=== PATIENT | female | born 1965 | race Caucasian/White ===

== ENCOUNTER → 2017-09-29 | Outpatient (CLI) | payer BC ==
--- NOTE | 2017-09-29 12:02 | MM ---
Reason for exam: additional evaluation requested from abnormal screening. Last mammogram was performed less than 1 month ago. Physical Findings: Nurse did not find any significant physical abnormalities on exam. MG Work Up Mamm w CAD RT Spot compression CC, spot compression MLO, and ML view(s) were taken of the right breast. Prior study comparison: September 15, 2017, bilateral MG screening mammo w CAD. October 02, 2015, bilateral MG screening mammo w CAD. The breast tissue is heterogeneously dense. This may lower the sensitivity of mammography. No suspicious abnormality. The previously seen focal asymmetry of the right upper outer quadrant appears as fibroglandular tissue on additional views. These results were verbally communicated with the patient and result sheet given to the patient on 09/29/17.. ASSESSMENT: Negative, BI-RAD 1 RECOMMENDATION: Return to routine screening mammogram schedule for both breasts.
== END | disposition home or self-care (01) ==
LOC: RADMAMWWP 09:03
PROVIDERS: ATTEND Obstetrics & Gynecology
DX: R92.8 Other abnormal and inconclusive findings on diagnostic imaging of breast (principal)
CPT/HCPCS: 77065

== ENCOUNTER → 2018-09-20 | Outpatient (CLI) | payer BC ==
[2018-09-20 10:21] LABS: Basophils % (A) 1 %; Eosinophils % (A) 1 %; HCT 41.5 % (34.0-46.0); HGB 13.8 gm/dL (11.4-16.0); Lymphocytes # (A) 1.1 k/uL (1.0-4.8); Lymphocytes % (A) 18 %; MCH 31.9 pg (25.0-35.0); MCHC 33.2 g/dL (31.0-37.0); MCV 96.2 fL (80.0-100.0); Mean Platelet Volume 7.1; Monocytes # (A) 0.3 k/uL (0-1.0); Monocytes % (A) 5 %; Neutrophils # (A) 4.6 k/uL (1.3-7.7); Neutrophils % (A) 74 %; Platelet Count 228 k/uL (150-450); RBC 4.32 m/uL (3.80-5.40); RDW 12.8 % (11.5-15.5); WBC 6.3 k/uL (3.8-10.6)
[2018-09-20 16:38] LABS: Albumin 4.2 g/dL (3.80-4.90); Albumin/Globulin Ratio 2.33 (1.60-3.17); Anion Gap 6.3 mmol/L (4.00-12.00); Calcium 9.4 mg/dL (8.7-10.3); Carbon Dioxide 25.7 mmol/L (21.6-31.8); Globulin 1.8 g/dL (1.6-3.3); LDL Cholesterol,Calculated 73.8 mg/dL (0.0-131.0); Magnesium 2.1 mg/dL (1.5-2.4); Potassium 4.2 mmol/L (3.5-5.5); Total Bilirubin 1.9 mg/dL (0.3-1.2); VLDL Calculation 22.2 mg/dL (5.00-40.00)
== END | disposition home or self-care (01) ==
LOC: LABWHC1 09:05
PROVIDERS: ATTEND Family Medicine
DX: Z00.00 Encounter for general adult medical examination without abnormal findings (principal); R00.2 Palpitations; R53.83 Other fatigue
CPT/HCPCS: 36415; 80053; 80061; 82607; 83735; 84443; 85025

== ENCOUNTER → 2018-09-26 | Outpatient (CLI) | payer BC ==
--- NOTE | 2018-09-27 12:05 | MM ---
Reason for exam: screening (asymptomatic). Last mammogram was performed 1 year ago. History: Took estrogen for 3 years. Took progesterone for 3 years. Physical Findings: A clinical breast exam by your physician is recommended on an annual basis and results should be correlated with mammographic findings. MG Screening Mammo w CAD Bilateral CC and MLO view(s) were taken. Prior study comparison: September 29, 2017, right breast MG work up mamm w CAD RT. September 15, 2017, bilateral MG screening mammo w CAD. The breast tissue is heterogeneously dense. This may lower the sensitivity of mammography. There is no discrete abnormality. ASSESSMENT: Negative, BI-RAD 1 RECOMMENDATION: Routine screening mammogram of both breasts in 1 year.
== END | disposition home or self-care (01) ==
LOC: RADMAMWWP 09:16
PROVIDERS: ATTEND Obstetrics & Gynecology
DX: Z12.31 Encounter for screening mammogram for malignant neoplasm of breast (principal)
CPT/HCPCS: 77067

== ENCOUNTER → 2018-11-07 | Outpatient (CLI) | payer BC ==
--- NOTE | 2018-12-01 14:01 | EM ---
EVENT MONITOR EVENT MONITOR: Event monitor for 31 days shows sinus rhythm with frequent PVCs, sometimes in a bigeminal pattern or short nonsustained run of atrial tachycardia. No sustained arrhythmias. No bradyarrhythmias. MMMARIELLEL / DEEPTIN: [id number] /
== END | disposition home or self-care (01) ==
LOC: RADECHMAIN 11:58
PROVIDERS: ATTEND Family Medicine
DX: R00.2 Palpitations (principal)
CPT/HCPCS: 93270

== ENCOUNTER → 2019-02-06 | Outpatient (CLI) | payer BC ==
--- NOTE | 2019-02-07 17:00 | ECHOF ---
Referral Reason:I49.3 Ventricular premature depolarization MEASUREMENTS -------- HEIGHT: 175.3 cm WEIGHT: 74.8 kg BP: 131/67 RVIDd: 3.6 cm (< 3.3) IVSd: 1.1 cm (0.6 - 1.1) LVIDd: 4.0 cm (3.9 - 5.3) LVPWd: 1.0 cm (0.6 - 1.1) IVSs: 1.5 cm LVIDs: 2.6 cm LVPWs: 1.3 cm LA Diam: 2.6 cm (2.7 - 3.8) LAESV Index (A-L): 22.57 ml/m Ao Diam: 3.8 cm (2.0 - 3.7) AV Cusp: 2.0 cm (1.5 - 2.6) MV EXCURSION: 15.510 mm (> 18.000) MV EF SLOPE: 73 mm/s (70 - 150) EPSS: 0.5 cm MV E Emerson: 1.00 m/s MV DecT: 282 ms MV A Emerson: 0.64 m/s MV E/A Ratio: 1.57 AV maxP.89 mmHg AV meanP.24 mmHg RAP: 5.00 mmHg RVSP: 28.81 mmHg FINDINGS -------- Sinus rhythm. This was a technically good study. The left ventricular size is normal. Left ventricular wall thickness is normal. Overall left vent ricular systolic function is normal with, an EF between 60 - 65 %. The right ventricle is mildly enlarged. Normal LA size by volume 22+/-6 ml/m2. The right atrium is normal in size. Interatrial and interventricular septum intact. The aortic valve is bicuspid. Peak/mean gradient across the Aortic Valve is 11.89mmHg / 6.24mmHg. The mitral valve is normal. There is trace to mild mitral regurgitation. Mild tricuspid regurgitation present. Right ventricular systolic pressure is normal at < 35 mmHg. Trace/mild (physiologic) pulmonic regurgitation. The aortic root and ascending aorta are dilated measuring up to 41 mm. Normal inferior vena cava with normal inspiratory collapse consistent with estimated right atrial pre ssure of 5 mmHg. There is no pericardial effusion. CONCLUSIONS -------- 1. Sinus rhythm. 2. This was a technically good study. 3. The left ventricular size is normal. 4. Left ventricular wall thickness is normal. 5. Overall left ventricular systolic function is normal with, an EF between 60 - 65 %. 6. The right ventricle is mildly enlarged. 7. Normal LA size by volume 22+/-6 ml/m2. 8. The right atrium is normal in size. 9. Interatrial and interventricular septum intact. 10. The aortic valve is bicuspid. 11. Peak/mean gradient across the Aortic Valve is 11.89mmHg / 6.24mmHg. 12. The mitral valve is normal. 13. There is trace to mild mitral regurgitation. 14. Mild tricuspid regurgitation present. 15. Right ventricular systolic pressure is normal at < 35 mmHg. 16. Trace/mild (physiologic) pulmonic regurgitation. 17. The aortic root and ascending aorta are dilated measuring up to 41 mm. 18. Normal inferior vena cava with normal inspiratory collapse consistent with estimated right atrial pressure of 5 mmHg. 19. There is no pericardial effusion. RETAIL MERCHANDISER: Soraya Gonzalez RDCS
== END | disposition home or self-care (01) ==
LOC: RADECHMAIN 16:13
PROVIDERS: ATTEND Family Medicine
DX: I08.1 Rheumatic disorders of both mitral and tricuspid valves (principal)
CPT/HCPCS: 93306

== ENCOUNTER → 2019-02-27 | Outpatient (CLI) | payer BC ==
--- NOTE | 2019-02-27 12:05 | CT ---
EXAMINATION TYPE: CT angio chest DATE OF EXAM: 02/27/2019 11:48 AM COMPARISON: None HISTORY: Heart palpitations CT DLP: 268.1 mGycm Automated exposure control for dose reduction was used. CONTRAST: CTA scan of the thorax is performed with IV Contrast, patient injected with 100 mL of Isovue 370, pul monary embolism protocol. . FINDINGS: LUNGS: Groundglass changes posteriorly are most typical of dependent atelectasis. 3 mm subpleural no dule left lower lobe laterally and a couple anterior segment right lower lobe 2 mm subpleural nodules are noted. No overt failure. No pleural effusion or pneumothorax. MEDIASTINUM: There is satisfactory enhancement of the pulmonary artery and its branches, there is no CT evidence for pulmonary embolism. There are no greater than 1 cm hilar or mediastinal lymph nodes . No pericardial effusion is seen. Heart is enlarged. Visualized pulmonary arteries enhance normall y. Ascending aorta measures 4.2 x 4.2 cm compatible with mild aneurysmal dilation. Aortic arch and de scending thoracic aorta are normal caliber. Mild atherosclerotic changes of the coronary arteries. OTHER: Hypertrophic and degenerative change spine. IMPRESSION: 1. Mild aneurysmal dilation of the ascending aorta measuring 4.2 x 4.2 cm. 2. Cardiomegaly with mild atherosclerotic changes of the coronary arteries
== END | disposition home or self-care (01) ==
LOC: RADCTMAIN 11:09
PROVIDERS: ATTEND Family Medicine
DX: I77.810 Thoracic aortic ectasia (principal); I51.7 Cardiomegaly; I25.10 Atherosclerotic heart disease of native coronary artery without angina pectoris
CPT/HCPCS: 71275; Q9967

== ENCOUNTER → 2020-04-15 | Outpatient (CLI) | payer BC ==
--- NOTE | 2020-04-16 13:00 | CT ---
CT CHEST FOR PULMONARY EMBOLISM. EXAMINATION TYPE: CT angio chest DATE OF EXAM: 04/15/2020 INDICATION: f/u aneurysm CT DLP: 254.7 mGycm, Automated exposure control for dose reduction was used. CONTRAST: Patient injected with 100 mL of Isovue 370. COMPARISON: 02/27/2019 TECHNIQUE: CT of the chest is performed on a spiral scan at 2 mm thick sections. Study is performed with intravenous contrast timed for evaluation of aortic aneurysm. This will limit additional portio ns of the evaluation. 3-D MIP images reconstructed by the technologist are reviewed on the computer in the coronal and sagittal planes. FINDINGS: No persistent filling defects are evident to suggest an acute pulmonary embolism. No mediastinal or hilar adenopathy enlarged by CT criteria is evident. The ascending aorta diameter at the level of the main pulmonary artery is 3.9 cm. Previous measurement 4.2 cm. No enlargement is evident. The main pulmonary artery diameter at the bifurcation is 2.6 cm. Lung windows are clear. Limited CT section through the upper abdomen are unremarkable. IMPRESSIONS: 1. Fusiform prominence without interval growth of the mid ascending thoracic aorta. 2. Aorta tapers normally through its visualized course.
== END | disposition home or self-care (01) ==
LOC: RADCTMAIN 16:30
PROVIDERS: ATTEND Internal Medicine Interventional Cardiology
DX: I71.2 Thoracic aortic aneurysm, without rupture (principal)
CPT/HCPCS: 71275; Q9967

== ENCOUNTER → 2023-08-25 | Outpatient (CLI) | payer BC ==
--- NOTE | 2023-08-25 21:35 | BD ---
EXAMINATION TYPE: Axial Bone Density DATE OF EXAM: 08/25/2023 CLINICAL HISTORY: 58 years old Female. ICD-10 CODE: N95.9 POST MENOPAUSAL Height: 68 Weight: 176 FRAX RISK QUESTIONS: Alcohol (3 or more units per day): no Family History (Parent hip fracture): no Glucocorticoids (More than 3mos): no History of Fracture in Adulthood: Fibula Secondary Osteoporosis: 1. Type 1 Diabetes: n0 2. Hyperthyroidism: no 3. Menopause before 45: no 4. Malnutrition: no 5. Chronic liver disease: no Rheumatoid Arthritis: no Current Tobacco Use: no RISK FACTORS HISTORY OF: Hip Fracture (Right/Left): no Spine Fracture: no History of Wrist Fracture: no Surgery to Spine/Hip(right/left)/Wrist (right/left): no MEDICATIONS: Thyroid Medications: no Osteoporosis Medications: no EXAM MEASUREMENTS: Bone mineral densitometry was performed using the [employer] System. Bone mineral density as measured about the Lumbar spine is: ----- L1-L4(G/cm2): 1.004 T Score Values are as follows: ----- L1: -11 ----- L2: -2.0 ----- L3: -1.5 ----- L4: -1.4 ----- L1-L4: -1.5 Z Score Values are as follows: ----- L1: -0.4 ----- L2: -1.3 ----- L3: -0.8 ----- L4: -0.7 ----- L1-L4: -0.8 Baseline Study Bone mineral density about the R hip (g/cm2): 0.882 Bone mineral density about the L hip (g/cm2): 0.904 T Score values are as follows: -----R Neck: -0.6 -----L Neck: -0.8 -----R Total: -1.0 -----L Total: -0.8 Z Score values are as follows: -----R Neck: 0.3 -----L Neck: 0.1 -----R Total: -0.4 -----L Total: -0.3 Baseline Study FRAX%s: The graph provided illustrates a 6.9 % chance for a major osteoporotic fx and a 0.3% chance f or the hips probability for fx in 10 years time. IMPRESSION: Osteopenia (T Score between -2.5 and -1). There is slightly increased risk of fracture and the patient may be considered for treatment. Re-Screen 2-5 years. NOTE: T-SCORE=SD OF THE YOUNG ADULT MEAN.
--- NOTE | 2023-08-28 14:55 | MM ---
Reason for Exam: Screening (asymptomatic). Last mammogram was performed 4 year(s) and 11 month(s) ago. Patient History: Menarche at age 11. First Full-Term at age 25. Postmenopausal. Currently using Estrogen, for 3 years. Currently using Progesterone, for 3 years. Risk Values: Katina 5 year model risk: 1.6%. NCI Lifetime model risk: 8.1%. Prior Study Comparison: 09/15/2017 Bilateral Screening Mammogram, [facility]. 09/29/2017 Right Diagnostic Mammogram, [facility]. 09/26/2018 Bilateral Screening Mammogram, [facility]. Tissue Density: The breasts are heterogeneously dense, which may obscure small masses. Findings: Analyzed By CAD. The pattern is symmetrical. Pattern appears stable. No suspicious groups of microcalcifications, spiculated or lobular masses, architectural distortion or other secondary signs of malignancy are mammographically apparent. Overall Assessment: Negative, BI-RAD 1 Management: Screening Mammogram of both breasts in 1 year. A negative mammogram report should not preclude additional follow up of suspicious palpable abnormalities. Patient should continue monthly self breast exam. A clinical breast exam by your physician is recommended on an annual basis and results should be correlated with mammographic findings. Electronically signed and approved by: Jan Olivo D.O. Radiologis
== END | disposition home or self-care (01) ==
LOC: RADMAMWWP 09:02
PROVIDERS: ATTEND Student in an Organized Health Care Education/Training Program
DX: Z12.31 Encounter for screening mammogram for malignant neoplasm of breast (principal); M85.89 Other specified disorders of bone density and structure, multiple sites; N95.9 Unspecified menopausal and perimenopausal disorder; Z78.0 Asymptomatic menopausal state
CPT/HCPCS: 77063; 77067; 77080

== ENCOUNTER → 2023-08-25 | Outpatient (CLI) | payer BC ==
--- NOTE | 2023-08-30 19:13 | CT ---
EXAMINATION TYPE: CT angio chest CT DLP: 646.2 mGycm, Automated exposure control for dose reduction was used. DATE OF EXAM: 08/25/2023 9:19 AM COMPARISON: Chest radiograph from same day. Multiple CTs of the chest with most recent on . CLINICAL INDICATION:Female, 58 years old with history of I71.4 ABDOMINAL AORTIC ANEURYSM; aneurysm TECHNIQUE/CONTRAST: CTA scan of the thorax is performed with IV Contrast, patient injected with 100 mL of Isovue 370, MIP images are created and reviewed these are created on a separate workstation.. FINDINGS: Pulmonary Artery: There is no evidence for a filling defect within the pulmonary vasculature to sugge st acute pulmonary embolism. The pulmonary artery is of normal size. Lungs/Pleura: No evidence of focal consolidation, pleural effusion or pneumothorax. Airway: Large airways are patent. Heart: Heart is within normal limits for size. Mild calcific coronary artery atherosclerosis. Vasculature: Most valvular dilatation of the ascending thoracic aorta to maximum 46 mm. Mediastinum: No gross evidence of adenopathy. Musculoskeletal: No acute osseous abnormalities Soft Tissues: Unremarkable. Lower neck: No significant findings. Upper Abdomen: No significant findings. IMPRESSION: 1. Ascending thoracic aorta is ectatic to 4.6 cm. 2. Mild coronary artery disease. Follow up recommendations for incidental pulmonary nodules, if there are any, are per [employer] or [employer]. https://radiopaedia.org/articles/lnwyihzcje-[email or web address]?lang=us
== END | disposition home or self-care (01) ==
LOC: RADCTMAIN 08:34
PROVIDERS: ATTEND Internal Medicine Interventional Cardiology
DX: I25.10 Atherosclerotic heart disease of native coronary artery without angina pectoris (principal); I71.40 Abdominal aortic aneurysm, without rupture, unspecified
CPT/HCPCS: 71275; Q9967

== ENCOUNTER → 2024-12-28 | Outpatient (CLI) | payer BC ==
[2024-12-29 04:06] LABS: Alternaria alternata IgE <0.10 kU/L; Aspergillus fumagatus IgE <0.10 kU/L; Cat Epith & Dander IgE <0.10 kU/L; Cladosporian herbarum IgE <0.10 kU/L; Dermato. farinae IgE <0.10 kU/L; Oak IgE <0.10 kU/L; Ragweed,Common IgE <0.10 kU/L; Red Top (Bentgrass) IgE <0.10 kU/L
== END | disposition home or self-care (01) ==
LOC: LABWHC1 15:03
PROVIDERS: ATTEND Internal Medicine
DX: R05.1 Acute cough (principal)
CPT/HCPCS: 36415; 82785; 85008; 86003